=== PATIENT | female | born 1985 | race African-American/Black ===

== ENCOUNTER 2019-10-13 06:05 | Inpatient (IN) | payer OTHER ==
[2019-10-13 06:49] VITALS: BMI 39.6
[2019-10-13] MEDS ORDERED: ELECTROLYTE-148 SOLN 500 ML IV ONE ×2 (06:55→06:57)
[2019-10-13] MEDS ORDERED: CITRIC ACID/SODIUM CITRATE 30 ML UNIT-DOSE CUP PO ONE (06:56)
[2019-10-13] MEDS ORDERED: ONDANSETRON 4 MG/2 ML VIAL IVPUSH PRN (07:49)
[2019-10-13] MEDS ORDERED: morphine SULFATE/PF 0.5 MG/ML (2cc Syringe - QUVA) EP ONE (07:49)
[2019-10-13] MEDS ORDERED: ceFAZolin SODIUM 1 GM VIAL ONE (07:59)
--- NOTE | 2019-10-13 08:06 | HP ---
Past Medical History - Primary Care Physician PCP:: Jake Ro - Admission Chief Complaint: Headache, back pain History of Present Illness: 34 yo EDC 10/18/2019 EGA 39 weeks , IVF with H/O Genital herpes admitted to for Elective Cesarian section. History Source: Patient Limitations to Obtaining History: No Limitations - Past Medical History Reproductive: Yes: Other (Infertility) ...: 1 ...Para: 0 ...Term: 0 ...: 0 ...Spon : 0 ...Induced : 0 ...Living Children: 0 ...Multiple Gestation: 0 ...EDC by Sono: 10/19/19 Heme/Onc: Yes: Anemia - Past Surgical History Hx Myomectomy: No Hx Transabdominal Cerclage: No Additional Surgical History: Laparoscopic bilateral salpingectomy - Smoking History Smoking history: Never smoked Have you smoked in the past 12 months: No - Alcohol/Substance Use Hx Alcohol Use: No - Social History Usual Living Arrangement: Yes: With Spouse History of Recent Travel: No Home Medications - Allergies Allergies/Adverse Reactions: Allergies Allergy/AdvReac Type Severity Reaction Status Date / Time No Known Allergies Allergy Verified 10/13/19 06:18 - Home Medications Home Medications: Ambulatory Orders Pnv No.95/Ferrous Fum/Folic AC [ Vitamin Tablet] 1 each PO DAILY 10/10/19 Valacyclovir HCl [Valtrex] 1,000 mg PO DAILY 10/10/19 Family Medical History Family Hx Coronary Artery Disease: Mother Family Hx Diabetes: Grandmother (maternal), Mother Review of Systems - Review of Systems Constitutional: reports: No Symptoms Eyes: reports: No Symptoms HENT: reports: No Symptoms Neck: reports: No Symptoms Cardiovascular: reports: No Symptoms Respiratory: reports: No Symptoms Gastrointestinal: reports: No Symptoms Genitourinary: reports: No Symptoms Breasts: reports: No Symptoms Reported Musculoskeletal: reports: No Symptoms Integumentary: reports: No Symptoms Neurological: reports: No Symptoms Endocrine: reports: No Symptoms Hematology/Lymphatic: reports: No Symptoms Psychiatric: reports: No Symptoms Physical Exam - Maternity Vital Signs: Vital Signs Temperature 98.4 F 10/13/19 06:38 Pulse Rate 84 10/13/19 06:38 Respiratory Rate 10/13/19 06:38 Blood Pressure 138/91 10/13/19 06:38 O2 Sat by Pulse Oximetry (%) Constitutional: Yes: Well Nourished, No Distress Eyes: Yes: WNL HENT: Yes: WNL Neck: Yes: WNL Cardiovascular: Yes: WNL Lungs: Clear to auscultation Breast(s): Yes: WNL - Abdominal Exam/OB Number of Fetuses: Single Presentation: Vertex Contractions: No Regularity: Irregular Intensity: Unaware Monitor Mode: External Category: I Accelerations: Uniform Decelerations: None - Vaginal Exam/OB Vaginal Bleeding: No Dilatation (cm): closed Amniotic Membrane Status: Intact Presentation: Vertex/Position Station: -2 - Physical Exam Musculoskeletal: Yes: WNL Extremities: Yes: WNL Edema: Yes Edema: LUE: 2+, RUE: 2+ Integumentary: Yes: WNL Deep Tendon Reflex Grade: Normal +2 ...Motor Strength: WNL Psychiatric: Yes: WNL Hemorrhage Risk Assessment - Risk Factors Risk Score: 1 (LGA) Risk Level: Medium Risk Problem List - Problems (1) resulting from in vitro fertilization Code(s): O09.819 - SUPRVSN OF PREG RSLT FROM ASSISTED REPRODCTV TECH, UNSP TRI (2) 39 weeks gestation of Code(s): Z3A.39 - 39 WEEKS GESTATION OF (3) Morbid obesity Code(s): E66.01 - MORBID (SEVERE) OBESITY DUE TO EXCESS CALORIES (4) Genital herpes affecting Code(s): O98.319 - OTH INFECT W SEXL MODE OF TRANSMISS COMP PREG, UNSP TRI; A60.09 - HERPESVIRAL INFECTION OF OTHER UROGENITAL TRACT Assessment/Plan Admit to LD Cesarian delivery
[2019-10-13] MEDS ORDERED: ELECTROLYTE-148 SOLN 1,000 ML IV SCH (08:15)
[2019-10-13] MEDS ORDERED: OXYTOCIN 10 UNITS/ML VIAL ONE (08:38)
--- NOTE | 2019-10-13 10:01 | OP ---
Operative Note - Note: Operative Date: 10/13/19 Pre-Operative Diagnosis: 34 yo @ 39 weeks. IVF. Recurrent Genital herpes. Fibroid uterus. Morbid obesity Operation: Primary LTCS via Pfannenstiel Incision Findings: Multiple fibroids Baby boy born 9/9 Cord gases and blood collected Placenta and membranes complete Post-Operative Diagnosis: Same as Pre-op Surgeon: Jake Ro Engine Turner: Kayy Baird Anesthesiologist/REPAIR ELECTRIC MOTOR ASSEMBLER: Arash Cabrera Anesthesia: Spinal Specimens Removed: cord and blood gases Estimated Blood Loss (mls): 800 Fluid Volume Replaced (mls): 2,000 Operative Report Dictated: No
[2019-10-13] MEDS ORDERED: IBUPROFEN 600 MG TABLET (FP) PO PRN (10:03)
[2019-10-13] MEDS ORDERED: MAGNESIUM HYDROX 2400MG/30ML ORAL SUSPENSION 30 ML CUP PO ONE (10:06)
[2019-10-13] MEDS ORDERED: ACETAMINOPHEN 1000 MG/100 ML VIAL (NON FORMULARY) IVPB ONE (10:15)
[2019-10-13] MEDS ORDERED: ONDANSETRON 4 MG/2 ML VIAL ONE (10:15)
[2019-10-13] MEDS ORDERED: ONDANSETRON 4 MG/2 ML VIAL IVPUSH ONE (10:15)
[2019-10-13] MEDS ORDERED: ACETAMINOPHEN INJECTION 100 ML IVPB ONE (10:15)
[2019-10-13] MEDS ORDERED: OXYTOCIN 20 UNITS in 0.9% NS 20 UNIT/1,000 ML INFUS.BAG IV ONE (10:36)
[2019-10-13] MEDS: OXYTOCIN 20 UNITS in 0.9% NS 20 UNIT/1,000 ML INFUS.BAG IV SCH ×2 (10:40→18:02)
[2019-10-13] MEDS ORDERED: ONDANSETRON 4 MG/2 ML VIAL IVPB ONE (11:00)
[2019-10-14] MEDS: SIMETHICONE 80 MG TAB.CHEW (FP) PO PRN ×2 (07:44→21:42)
[2019-10-14 08:14] LABS: BASO % 0.8 % (0-2.0); EOS % 0.3 % (0-4.5); HEMATOCRIT 30.6 % (32.4-45.2); HEMOGLOBIN 10.1 GM/dL (10.7-15.3); LYMPH % 16.3 % (8-40); MCH 27.2 pg (25.7-33.7); MCHC 32.9 g/dl (32.0-36.0); MEAN CELL VOLUME 82.8 fl (80-96); MEAN PLT VOLUME 8.6 fl (7.5-11.1); MONO % 6.3 % (3.8-10.2); NEUT % 76.3 % (42.8-82.8); PLATELET COUNT 205 K/MM3 (134-434); RBC 3.69 M/mm3 (3.60-5.2); RDW 13.7 % (11.6-15.6); WHITE BLOOD COUNT 7.3 K/mm3 (4.0-10.0)
[2019-10-14] MEDS: ENOXAPARIN NA (PORCINE) 40 MG/0.4 ML DISP.SYRIN SQ SCH (09:41)
[2019-10-14] MEDS ORDERED: BISACODYL 10 MG SUPP.RECT RC PRN (10:03)
--- NOTE | 2019-10-14 12:17 | PN ---
Post Progress Note Post Day: 1 Type of Delivery: Primary C/S Vital Signs: Vital Signs Temperature 98.1 F 10/14/19 04:00 Pulse Rate 76 10/14/19 04:00 Respiratory Rate 20 10/14/19 06:43 Blood Pressure 152/86 10/14/19 04:00 O2 Sat by Pulse Oximetry (%) 98 10/13/19 10:25 Breast Exam: Yes: Soft Uterus: Yes: Fundus Firm, Fundus below umbilicus Incision: Yes: Dressing dry and intact Abdomen/GI: Yes: Abdomen soft, Tolerating PO Lochia: Yes: Rubra Lochia, amount: Small Extremities: Yes: Calves non-tender Activity: Ambulating - Labs Labs: CBC WBC 7.3 K/mm3 (4.0-10.0) 10/14/19 07:55 RBC 3.69 M/mm3 (3.60-5.2) 10/14/19 07:55 Hgb 10.1 GM/dL (10.7-15.3) L 10/14/19 07:55 Hct 30.6 % (32.4-45.2) L 10/14/19 07:55 MCV 82.8 fl (80-96) 10/14/19 07:55 MCH 27.2 pg (25.7-33.7) 10/14/19 07:55 MCHC 32.9 g/dl (32.0-36.0) 10/14/19 07:55 RDW 13.7 % (11.6-15.6) 10/14/19 07:55 Plt Count 205 K/MM3 (134-434) 10/14/19 07:55 MPV 8.6 fl (7.5-11.1) 10/14/19 07:55 Absolute Neuts (auto) 5.6 K/mm3 (1.5-8.0) 10/14/19 07:55 Neutrophils % 76.3 % (42.8-82.8) D 10/14/19 07:55 Lymphocytes % 16.3 % (8-40) D 10/14/19 07:55 Monocytes % 6.3 % (3.8-10.2) 10/14/19 07:55 Eosinophils % 0.3 % (0-4.5) 06/13/20 07:55 Basophils % 0.8 % (0-2.0) 10/14/19 07:55 Nucleated RBC % 0 % (0-0) 10/14/19 07:55 Assessment/Plan S/P delivery, pod # 1, reports not passing flatus. No other complaints Plan - delivery with slow return of bowel function Encourage ambulation and incentive spirometer Continue other management
--- NOTE | 2019-10-14 13:44 | DS ---
Physical Exam-DESK MAKER Vital Signs: Vital Signs Temperature 98.8 F 10/14/19 09:00 Pulse Rate 82 10/14/19 09:00 Respiratory Rate 20 10/14/19 09:00 Blood Pressure 143/82 10/14/19 09:00 O2 Sat by Pulse Oximetry (%) 98 10/13/19 10:25 Constitutional: Yes: Well Nourished, No Distress Eyes: Yes: WNL HENT: Yes: WNL Neck: Yes: WNL Cardiovascular: Yes: WNL Respiratory: Yes: WNL Gastrointestinal: Yes: WNL ...Rectal Exam: Yes: Deferred Renal/: Yes: WNL Pelvis: Yes: WNL External Genitalia: Yes: Normal Internal Exam Deferred: No ....Post : Yes: Uterus firm, Uterus non-tender, Slight lochia rubra Breast(s): Yes: WNL Musculoskeletal: Yes: WNL Extremities: Yes: WNL Edema: LLE: 2+, RLE: 2+ Integumentary: Yes: WNL Wound/Incision: Yes: Clean/Dry, Well Approximated Neurological: Yes: WNL ...Motor Strength: WNL Psychiatric: Yes: WNL (Dreassing to be removed after shower) Labs: CBC, BMP 10/14/19 07:55 Delivery - Delivery Section: Primary, Low Flap Transverse Type of Anesthesia: Spinal Episiotomy/Laceration: None EBL (cc): 800 Delivery, Single - Stages of Labor Date of Delivery: 10/13/19 Time of Delivery: 08:38 Time Placenta Delivered: 08:39 Placenta: Yes: Spontaneous - Condition of Infant Longwall Machine Operator Helper/Cement Mixer Present: Yes Name: Angel Iglesias Gender: Male Weight: 3.345 kg Total Hours ROM (Hrs/Mins): 2 mins - 1 Minute Total Score: 9 5 Minutes Total Score: 9 - Feeding Plan Initial Plan: Exclusive throughout hospitalization Discharge Summary Problems reviewed: Yes Reason For Visit: SCHEDULED Current Active Problems 39 weeks gestation of (Acute) Genital herpes affecting (Acute) Morbid obesity (Acute) resulting from in vitro fertilization (Acute) Hospital Course: Pt happy, + flatus Incision dry - Instructions Diet, Activity, Other Instructions: Regular diet Referrals: Jake Ro MD [Staff Physician] - Disposition: HOME - Home Medications Comprehensive Discharge Medication List: Ambulatory Orders Pnv No.95/Ferrous Fum/Folic AC [ Vitamin Tablet] 1 each PO DAILY 10/10/19 Valacyclovir HCl [Valtrex] 1,000 mg PO DAILY 10/10/19 Motrin 600 mg po q 6 hrs/prn
--- NOTE | 2019-10-14 14:37 | PN ---
Progress Note (short form) - Note Progress Note: 34 F s/p spinal for C/S. pain controlled. pt c/o Lt thigh "numbness." pt able to ambulate well and sensation is intact as per pt. pt told to have anesthesia reassess if the sensation doesnt improve or resolve within the next day. otherwise pt doing well. will await possible visit tomorrow depending on symptoms.
[2019-10-15] MEDS: ENOXAPARIN NA (PORCINE) 40 MG/0.4 ML DISP.SYRIN SQ SCH (10:55)
[2019-10-15 12:50] VITALS: BP 132/82; PULSE 96; TEMP 99.1
--- NOTE | 2019-10-16 15:09 | PATH ---
Surgical Pathology Report Patient Name: JOSE MAC [facility]. Rec. #: [id number] /Age/Gender: 1985 (Age: 34) / F Account: [id number] Location: [facility] OBS/GERIATRIC CARE MANAGER Taken: 10/13/2019 Received: 10/13/2019 Reported: 10/16/2019 Physicians: Jake Ro M.D. Specimen(s) Received PLACENTA Clinical History , 39.1 weeks, fibroid uterus, IVF , HSV 1, HSV 2, positive screen for Down syndrome-declined amnio- U/S-WNL, obesity, eczema Final Diagnosis PLACENTA: THIRD TRIMESTER PLACENTA WITH FOCAL PERIVILLOUS FIBRIN DEPOSITION. TRIVASCULAR CORD. MEMBRANES WITH NO DIAGNOSTIC ABNORMALITIES. Electronically Signed Myron Herr M.D. Gross Description The specimen is received fresh labeled placenta and is a 479 gram, 19.5 x 15.0 x 2.5 cm. placenta with attached membranes and umbilical cord. The attached membranes are saucedo, translucent with focal opacities and insert marginally. The umbilical cord measures 9 cm. in length and averages 1.1 cm. in diameter. The cord inserts eccentrically, 4.5 cm. to the nearest margin. No true knots or strictures are identified. Cut surface of the umbilical cord reveals 3 vessels. The surface is holman-blue with minimal fibrin deposition and appropriate caliber vessels. The maternal surface is red-brown with focal defects. Sectioning reveals red-brown, spongy parenchyma. No lesions are identified. Extrusion Manager sections are submitted in three cassettes as follows: 1- membrane rolls and umbilical cord; 2-3- full thickness sections of placenta. /10/13/2019 [facility]/10/13/2019
--- NOTE | 2019-10-26 12:35 | OP ---
DATE OF OPERATION: 10/13/2019 PREOPERATIVE DIAGNOSIS: A 34-year-old 1, para 0 at 39 weeks in vitro fertilization, recurrent genital herpes, fibroid uterus, morbid obesity. POSTOPERATIVE DIAGNOSIS: A 34-year-old 1, para 0 at 39 weeks in vitro fertilization, recurrent genital herpes, fibroid uterus, morbid obesity. PROCEDURE: Primary low transverse section via Pfannenstiel incision. ANESTHESIA: Spinal. ANESTHESIOLOGIST: Arash Cabrera MD SURGEON: Es Baxter MD PERFORMANCE IMPROVEMENT ANALYST: Kayy Baird MD FINDINGS: Multiple fibroids. Delivery baby boy, 's 9, 9. Cord gases and blood collected. SPECIMEN REMOVED: Cord and blood gases. ESTIMATED BLOOD LOSS: 800 mL. FLUIDS: Lactated Ringer's 2000 mL. URINE OUTPUT: At the end of the procedure 200 mL clear urine. INDICATION: A 34-year-old G1, para 0 at 39 weeks, by IVF, recurrent genital herpes, fibroid uterus, morbid obesity. PROCEDURE: The patient was taken to the operating room where spinal anesthesia was found to be adequate. Patient was prepped and draped in the usual sterile fashion in dorsal supine position with a leftward tilt. A Pfannenstiel skin incision was made with a scalpel and carried through to the underlying layer of fascia with the Bovie. The fascia was incised in the midline and the incision extended laterally with Leahy scissors. The superior and inferior aspect of the fascial incision was grasped with Virginia clamps, elevated and the underlying rectus muscles dissected off bluntly. The rectus muscles were then in the midline. The peritoneum visualized, grasped with pickups and entered sharply with Metzenbaum scissors. This incision was extended superiorly and inferiorly with good visualization of the bladder. The bladder blade was inserted and the vesicouterine peritoneum identified, grasped with pickups and entered sharply with Metzenbaum scissors. This incision was then extended laterally and the bladder flap created digitally. The bladder blade was then reinserted and the lower uterine segment incised in transverse fashion with a scalpel. The uterine incision was then extended laterally with bandage scissors. The bladder blade was removed and the infant's head delivered atraumatically. The nose and mouth were suctioned and the cord clamped and cut. The was handed off to the waiting florist's decorator. Cord gases and blood were collected. Placenta was then removed manually, the uterus exteriorized and cleared of all clots and debris. The uterine incision repaired with 1-0 chromic in a running locked fashion. Second layer of the same suture was used to obtain excellent hemostasis. Bladder flap was repaired with 2-0 chromic in a running stitch and the uterus returned to the abdomen. The gutters were clear of all clots and debris. Peritoneum closed with 2-0 chromic. The fascia was reapproximated with 0 Vicryl in a running fashion and the skin was closed with 3-0 Vicryl in subcuticular fashion. The patient tolerated the procedure well. Sponge, lap, needle counts were correct x2. The patient was taken to the recovery room in stable condition. ES BAXTER MD RP/[id number]
== END 2019-10-15 12:20 | disposition home or self-care (01) | DRG 540 ==
LOC: JLDR 06:05 → J3W 11:40
PROVIDERS: ADMIT Obstetrics & Gynecology; ATTEND Obstetrics & Gynecology
PROC: 10D00Z1 Extraction of Products of Conception, Low, Open Approach (ICD-10-PCS; principal; 2019-10-13)
DX: O82 Encounter for cesarean delivery without indication (principal); O98.32 Other infections with a predominantly sexual mode of transmission complicating childbirth; A60.09 Herpesviral infection of other urogenital tract; O99.214 Obesity complicating childbirth; E66.01 Morbid (severe) obesity due to excess calories; O69.81X0 Labor and delivery complicated by cord around neck, without compression, not applicable or unspecified; Z37.0 Single live birth; Z3A.39 39 weeks gestation of pregnancy; O34.13 Maternal care for benign tumor of corpus uteri, third trimester; D25.9 Leiomyoma of uterus, unspecified; Z90.79 Acquired absence of other genital organ(s)
CPT/HCPCS: 36415; 36600; 82803; 85025; 88307-TC; J0131